=== PATIENT | female | born 1995 | race African-American/Black ===

== ENCOUNTER 2019-01-03 13:11 | Emergency (ER) | payer OTHER ==
[2019-01-03 13:27] VITALS: BP 111/60; PULSE 91; TEMP 99.3; BMI 40.6
--- NOTE | 2019-01-03 14:04 | PDOC ---
History of Present Illness - General Chief Complaint: Pain Stated Complaint: BACK PAIN Time Seen by Provider: 01/03/19 13:52 History Source: Patient Exam Limitations: No Limitations - History of Present Illness Initial Comments: 01/03/19 14:05 8 weeks , and has multiple complaints including severely swollen and painful tonsils with exudate 2 days. States has fevers and chills. And difficulty swallowing. No one at home is sick, has taken no medications or treatments for resolve. Second has severe back pain, states is primarily at waistline and denies any trauma, no recent injury or history of back pain. Denies any vaginal drainage/bleeding or discharge. Denies any problems with bowel or bladder. Has had no care thus far and his first . Back pain also started approximately 2 days ago Occurred: reports: yesterday Severity: reports: moderate, severe Pain Location: reports: back Modifying Factors: improves with: None Loss of Consciousness: no loss of consciousness Associated Symptoms (Fall): headache, muscle spasms, nausea/vomiting Past History - Travel Traveled outside of the country in the last 30 days: No Close contact w/someone who was outside of country & ill: No - Past Medical History Allergies/Adverse Reactions: Allergies Allergy/AdvReac Type Severity Reaction Status Date / Time No Known Allergies Allergy Verified 01/03/19 13:27 Home Medications: Ambulatory Orders Acetaminophen Oral Solution [Tylenol 160mg/5mL Oral Solution -] 650 mg PO Q6H # 200 ml 01/03/19 COPD: No - Suicide/Smoking/Psychosocial Hx Smoking History: Never smoked Review of Systems - Review of Systems Able to Perform ROS?: Yes Is the patient limited Sami proficient: Yes Constitutional: Yes: Symptoms Reported, See HPI, Fever, Malaise HEENTM: Yes: Symptoms Reported, See HPI, Nose Congestion, Throat Pain, Throat Swelling, Difficulty Swallowing Respiratory: Yes: See HPI. No: Symptoms reported, Cough ABD/GI: Yes: See HPI, Nausea, Vomiting. No: Symptoms Reported Musculoskeletal: Yes: Symptoms Reported, See HPI, Back Pain, Muscle Pain Integumentary: No: Symptoms Reported All Other Systems: Reviewed and Negative *Physical Exam - Vital Signs Last Vital Signs Temp Pulse Resp BP Pulse Ox 99.3 F 91 H 18 111/60 99 01/03/19 13:19 01/03/19 13:19 01/03/19 13:19 01/03/19 13:19 01/03/19 13:19 - Physical Exam General Appearance: Yes: Nourished, Appropriately Dressed, Apparent Distress, Moderate Distress HEENT: positive: TMs Normal, Muffled/Hoarse voice (tonsils are grossly enlarged with whitish phillip exudate, airway is patent however tonsils almost kissing), Pharyngeal Erythema, Tonsillar Exudate, Tonsillar Erythema, Nasal Congestion, Rhinorrhea. negative: Pharynx Normal Neck: positive: Supple, Lymphadenopathy (R), Lymphadenopathy (L) Respiratory/Chest: positive: Lungs Clear, Normal Breath Sounds Gastrointestinal/Abdominal: positive: Soft. negative: Tender, Guarding, Rebound Extremity: positive: Normal Inspection, Normal Range of Motion Integumentary: positive: Dry, Warm, Pale Neurologic: positive: grinder II-XII NML intact, Fully Oriented, Alert, Normal Mood/ Affect, Normal Response, Motor Strength 5/5 Progress Note - Progress Note Progress Note: Rapid strep test negative, patient understands if strep other than 80 hemolytic a returns with culture will be called and potential antibiotics will be prescribed. States feels much improved after Tylenol was able to rest. Back is less painful. Given ENCEPHALOGRAPHER Dr. Howell to initiate care, and patient encouraged to follow-up for continued evaluations and forward treatments *DC/Admit/Observation/Transfer Diagnosis at time of Disposition: Pharyngitis Qualifiers: Pharyngitis/tonsillitis etiology: unspecified etiology Qualified Code(s): J02.9 - Acute pharyngitis, unspecified Back pain affecting Qualifiers: Trimester: first trimester Qualified Code(s): O99.89 - Other specified diseases and conditions complicating , childbirth and the puerperium - Discharge Dispostion Disposition: HOME Condition at time of disposition: Stable Decision to Admit order: No - Prescriptions Prescriptions: Acetaminophen Oral Solution [Tylenol 160mg/5mL Oral Solution -] 650 mg PO Q6H # 200 ml - Referrals Referrals: Sarah Howell MD [Staff Physician] - - Patient Instructions Printed Discharge Instructions: DI for Low Back Pain Additional Instructions: Rest, drink lots of fluids: Teas, water, soups, Pedialyte Saltwater gargles Steamy showers/seem to face break up mucus Avoid contact with others until fevers and cough resolved Lots of handwashing and good hygiene Tylenol for fever and pain Followup with private physician in one to 2 days as needed Return to emergency department for worsened symptoms, fevers, dehydration - Post Discharge Activity Forms/Work/School Notes: Back to Work
[2019-01-03] MEDS ORDERED: ACETAMINOPHEN 500 MG TABLET (FP) PO ONE (14:05)
[2019-01-03] MEDS ORDERED: ACETAMINOPHEN 325 MG TABLET (FP) ONE (14:11)
[2019-01-03 14:35] LABS: URINE APPEARANCE CLEAR; URINE BILIRUBIN NEGATIVE (NEGATIVE); URINE COLOR YELLOW; URINE GLUCOSE (UA) NEGATIVE (NEGATIVE); URINE KETONE 3+ (NEGATIVE); URINE LEUK ESTERASE NEGATIVE (NEGATIVE); URINE NITRITE NEGATIVE (NEGATIVE); URINE PROTEIN NEGATIVE (NEGATIVE); URINE UROBILINOGEN 0.2 mg/dL (0.2-1.0)
== END 2019-01-03 14:58 | disposition home or self-care (01) ==
LOC: JERFT 13:11
DX: O99.89 Other specified diseases and conditions complicating pregnancy, childbirth and the puerperium (principal); J02.9 Acute pharyngitis, unspecified; M54.5 Low back pain; Z3A.08 8 weeks gestation of pregnancy
CPT/HCPCS: 81003; 87070; 87077; 87880; 99281-25

== ENCOUNTER 2019-03-04 15:34 | Emergency (ER) | payer OTHER ==
--- NOTE | 2019-03-04 15:53 | PDOC ---
Rapid Medical Evaluation Time Seen by Provider: 03/04/19 15:51 Medical Evaluation: Allergies Allergy/AdvReac Type Severity Reaction Status Date / Time No Known Allergies Allergy Verified 01/03/19 13:27 03/04/19 15:52 I have performed a brief in-person evaluation of this patient. The patient presents with a chief complaint of: urinary, vaginal symptoms, 16 weeks Pertinent physical exam findings:stable and in NAD, non-focal I have ordered the following: ua, stds The patient will proceed to the ED for further evaluation.
[2019-03-04 15:54] VITALS: BP 123/62; PULSE 81; TEMP 98; BMI 41.0
--- NOTE | 2019-03-04 16:50 | PDOC ---
History of Present Illness - General Chief Complaint: Urinary Problem Stated Complaint: 16WKS/ FOUL ODOR Time Seen by Provider: 03/04/19 15:51 - History of Present Illness Initial Comments: 03/04/19 16:43 CHIEF COMPLAINT: vaginal discharge HISTORY OF PRESENT ILLNESS: 23 yo 16 weeks F presents to fast track with vaginal discharge and odor. Patient reports she has had a history of bacterial vaginosis "and they gave me a cream before for it at [facility] but they told me it could come back." Patient reports white discharge and discomfort with urination. Patient also requests STD testing. No recent travel or sick contacts. PAST MEDICAL HISTORY: Denies past medical history FAMILY HISTORY: Denies SOCIAL HISTORY: Denies tobacco, alcohol, illicit drug use. SURGICAL HISTORY: Denies ALLERGIES: No known drug allergies REVIEW OF SYSTEMS General/Constitutional: Denies fever or chills. Denies weakness, weight change. HEENT: Denies change in vision. Denies ear pain or discharge. Denies sore throat. Cardiovascular: Denies chest pain or shortness of breath. Respiratory: Denies cough, wheezing, or hemoptysis. Gastrointestinal: Denies nausea, vomiting, diarrhea or constipation. Denies rectal bleeding. Genitourinary: Dysuria, vaginal odor and white discharge Musculoskeletal: Denies joint or muscle swelling or pain. Denies neck or back pain. Skin and breasts: Denies rash or easy bruising. Neurologic: Denies headache, vertigo, loss of consciousness, or loss of sensation PHYSICAL EXAM General Appearance: Well-appearing, appropriately dressed. No apparent distress , no intoxication. HEENT: EOMI, PERRLA, normal ENT inspection, normal voice, TMs normal, pharynx normal. No conjunctival pallor. No photophobia, scleral icterus. Neck: Supple. Trachea midline. No tenderness, rigidity, carotid bruit, stridor , lymphadenopathy, or thyromegaly. Respiratory/Chest: Lungs CTAB. No shortness of breath, chest tenderness, respiratory distress, accessory muscle use. No crackles, rales, rhonchi, stridor , wheezing, dullness Cardiovascular: RRR. S1, S2. No JVD, murmur, bradycardia, tachycardia. Vascular Pulses: Dorsalis-Pedis (R): 2+, Dorsalis-Pedis (L): 2+ Gastrointestinal/Abdominal: Normal bowel sounds. Abdomen soft, non-distended. No tenderness or rebound tenderness. No organomegaly, pulsatile mass, guarding , hernia, hepatomegaly, splenomegaly. Pelvic exam: Erythema to cervix, white discharge with fishy odor. Lymphatic: No adenopathy, tenderness. Musculoskeletal/Extremities: Normal inspection. FROM of all extremities, normal capillary refill. Pelvis Stable. No CVA tenderness. No tenderness to extremities, pedal edema, swelling, erythema or deformity. Integumentary: Appropriate color, dry, warm. No cyanosis, erythema, jaundice or rash Neurologic: chief load dispatcher II-XII intact. Fully oriented, alert. Appropriate mood/affect. Motor strength 5/5. No appreciable EOM palsy, facial droop or sensory deficit. Past History - Past Medical History Allergies/Adverse Reactions: Allergies Allergy/AdvReac Type Severity Reaction Status Date / Time No Known Allergies Allergy Verified 03/04/19 15:54 Home Medications: Ambulatory Orders Acetaminophen Oral Solution [Tylenol 160mg/5mL Oral Solution -] 650 mg PO Q6H # 200 ml 01/03/19 metroNIDAZOLE [Metronidazole] 500 mg PO BID #14 tablet 03/04/19 COPD: No - Reproductive History Is Patient Now?: Yes Para: 1 - Suicide/Smoking/Psychosocial Hx Smoking History: Never smoked Hx Alcohol Use: No Drug/Substance Use Hx: No *Physical Exam - Vital Signs Last Vital Signs Temp Pulse Resp BP Pulse Ox 98.0 F 81 16 123/62 100 03/04/19 15:51 03/04/19 15:51 03/04/19 15:51 03/04/19 15:51 03/04/19 15:51 Medical Decision Making - Medical Decision Making 03/04/19 16:50 23 yo 16 weeks F presents to fast track with vaginal discharge and odor. -metronidazole rx sent to pharm -will defer treatment for ct/gc pending results given patient is in 2nd trimester of Advised patient to take medication as prescribed and follow up with OB this week. Advised patient of signs and symptoms for return to ED. Patient verbalized understanding and agrees to plan. *DC/Admit/Observation/Transfer Diagnosis at time of Disposition: Bacterial vaginosis in , Yeast infection - Discharge Dispostion Disposition: HOME Condition at time of disposition: Stable Decision to Admit order: No - Prescriptions Prescriptions: metroNIDAZOLE [Metronidazole] 500 mg PO BID #14 tablet - Referrals [facility]errals: [facility] [Outside] - Patient Instructions Printed Discharge Instructions: DI for Bacterial Vaginosis Additional Instructions: Please use medication as prescribed. Please call back in 3-5 days for lab results. If you develop any new or worsening symptoms, please return to the ER. - Post Discharge Activity
[2019-03-04 17:00] LABS: URINE APPEARANCE Error; URINE BILIRUBIN NEGATIVE (NEGATIVE); URINE COLOR YELLOW; URINE GLUCOSE (UA) NEGATIVE (NEGATIVE); URINE KETONE NEGATIVE (NEGATIVE); URINE LEUK ESTERASE NEGATIVE (NEGATIVE); URINE NITRITE NEGATIVE (NEGATIVE); URINE PROTEIN NEGATIVE (NEGATIVE)
== END 2019-03-04 17:13 | disposition home or self-care (01) ==
LOC: JERFT 15:34
DX: O26.892 Other specified pregnancy related conditions, second trimester (principal); O23.592 Infection of other part of genital tract in pregnancy, second trimester; B96.89 Other specified bacterial agents as the cause of diseases classified elsewhere; O98.812 Other maternal infectious and parasitic diseases complicating pregnancy, second trimester; B37.3 Candidiasis of vulva and vagina; Z3A.16 16 weeks gestation of pregnancy
CPT/HCPCS: 36415; 81003; 87086; 87491; 87591; 99282-25

== ENCOUNTER 2019-08-27 15:19 | Inpatient (IN) | payer OTHER ==
[2019-08-27] MEDS ORDERED: AMPICILLIN SODIUM 2 GM VIAL ONE (15:56)
[2019-08-27] MEDS ORDERED: ePHEDrine SULFATE 50 MG/1 ML AMPULE ONE (16:22)
[2019-08-27] MEDS ORDERED: morphine SULFATE/PF 0.5 MG/ML (2cc Syringe - QUVA) ONE (16:22)
--- NOTE | 2019-08-27 16:29 | PN ---
Progress Note (short form) - Note Progress Note: cx 3 cm, 70 vx -3 mi, fhr cat 2, , with decelration with contraction , good BTB variability , advised c/s , need for c/s and risks discussed with patient. product development ,anesthesia has notified previous c/s patient in OR, will do stat c/s as soon as or ready
[2019-08-27 16:30] LABS: BASO % 0.7 % (0-2.0); EOS % 0.9 % (0-4.5); HEMATOCRIT 38.1 % (32.4-45.2); HEMOGLOBIN 12.4 GM/dL (10.7-15.3); LYMPH % 28.3 % (8-40); MCH 27.6 pg (25.7-33.7); MCHC 32.6 g/dl (32.0-36.0); MEAN CELL VOLUME 84.6 fl (80-96); MEAN PLT VOLUME 7.8 fl (7.5-11.1); NEUT % 59.1 % (42.8-82.8); PLATELET COUNT 305 K/MM3 (134-434); WHITE BLOOD COUNT 10.5 K/mm3 (4.0-10.0)
[2019-08-27] MEDS ORDERED: ceFAZolin SODIUM 1 GM VIAL ONE (16:36)
[2019-08-27] MEDS ORDERED: DEXAMETHASONE SOD PHOSPHATE 4 MG/1 ML VIAL ONE (16:36)
[2019-08-27] MEDS ORDERED: KETOROLAC TROMETHAMINE 30 MG/1 ML VIAL ONE (16:36)
[2019-08-27 16:56] LABS: INR 0.93 (0.83-1.09)
[2019-08-27 16:59] LABS: ACTIVATED PTT 27.2 SECONDS (25.2-36.5); BLOOD UREA NITROGEN 8.3 mg/dL (7-18); CALCIUM 8.5 mg/dL (8.5-10.1); CREATININE 0.7 mg/dL (0.55-1.3); POTASSIUM 4.6 mmol/L (3.5-5.1)
[2019-08-27] MEDS ORDERED: CITRIC ACID/SODIUM CITRATE 30 ML UNIT-DOSE CUP PO ONE (17:44)
[2019-08-27] MEDS ORDERED: ELECTROLYTE-148 SOLN 1,000 ML IV SCH (17:45)
[2019-08-27] MEDS ORDERED: diphenhydrAMINE HCL 25 MG CAPSULE (FP) PO PRN (17:46)
[2019-08-27] MEDS ORDERED: SIMETHICONE 80 MG TAB.CHEW (FP) PO PRN (17:46)
[2019-08-27] MEDS ORDERED: WITCH HAZEL 50% (TUCKS) 40 PAD/JAR PAD TP PRN (17:46)
[2019-08-27] MEDS ORDERED: METHYLERGONOVINE MALEATE 0.2 MG/1 ML AMP IM PRN (17:46)
[2019-08-27] MEDS ORDERED: oxyCODONE HCL 5 MG TABLET PO PRN ×2 (17:46)
[2019-08-27] MEDS ORDERED: BENZOCAINE 20% 57 GM BOTTLE TP PRN (17:46)
[2019-08-27] MEDS ORDERED: BENZOCAINE 28 GM HEMORRHOIDAL OINTMENT PR PRN (17:46)
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
[2019-08-27] MEDS ORDERED: CEFAZOLIN 1 GM in DEXTROSE 5%-WATER - 50 ML IVPB SCH (18:00)
[2019-08-27] MEDS ORDERED: OXYTOCIN 20 UNITS in 0.9% NS 20 UNIT/1,000 ML INFUS.BAG IV SCH (18:00)
[2019-08-27] MEDS ORDERED: DEXTROSE 5%-LACTATED RINGERS 1,000 ML IV SCH (18:00)
--- NOTE | 2019-08-27 18:25 | OP ---
Operative Note - Note: Operative Date: 08/27/19 Pre-Operative Diagnosis: 41.5 weeks, labor , non-reassuring FHR Operation: primary LST c/s Findings: live baby girl , ROT, cord around neck once , thick meconium amniotic fluid, Post-Operative Diagnosis: Same as Pre-op Surgeon: Efrem Toledo Escrow Agent: Loy Colbert Anesthesiologist/TROUBLE LOCATOR TEST DESK: Anshul Coelho Anesthesia: Spinal Specimens Removed: placenta Estimated Blood Loss (mls): 500 Drains & Tubes with Location: gomez Drains, Volume Out (mls): 175 Blood Volume Replaced (mls): 0 Fluid Volume Replaced (mls): 1,800 Operative Report Dictated: Yes
[2019-08-27 18:36] VITALS: BMI 42.6
[2019-08-27 20:19] LABS: COCAINE, UR NEGATIVE ng/ml (CUTOFF=300); METHADONE, UR NEGATIVE ng/ml (CUTOFF=300); OPIATES, URI NEGATIVE ng/ml (CUTOFF=300); PHENCYCLIDINE,URINE NEGATIVE ng/ml (CUTOFF=25); URINE AMPHETAMINES NEGATIVE ng/ml (CUTOFF=500); URINE BARBITURATES NEGATIVE ng/ml (CUTOFF=200); URINE BENZODIAZEPINES NEGATIVE ng/ml (CUTOFF=200)
--- NOTE | 2019-08-27 20:57 | OP ---
DATE OF OPERATION: 08/27/2019 PREOPERATIVE DIAGNOSES: , 41-5/7 weeks gestation; labor; non-reassuring heart rate. POSTOPERATIVE DIAGNOSES: , 41-5/7 weeks gestation; labor; non-reassuring heart rate. PROCEDURE: Primary low-segment transverse section. SURGEON: Efrem Toledo MD VETERINARY MEDICINE TEACHER: RADHAMES Collier ANESTHESIA: Spinal. ANESTHESIOLOGIST: Fransisco Coelho MD ESTIMATED BLOOD LOSS: 500 mL. FINDINGS: A live baby girl, ROT position, thick meconium amniotic fluid. OPERATION: Patient was taken to operating room. Adequate spinal anesthesia. Abdomen and perineum was prepped and draped. Pfannenstiel abdominal skin incision was made, abdominal wall was cut layer by layer until peritoneum was exposed and incised. Upon entering abdominal cavity, lower uterine segment was identified and both gutters were packed. Bladder flap was developed with Metzenbaum scissors. Bladder was pushed down and low transverse uterine incision was made with a knife, the incision extended laterally with bandage scissors. Amniotic sac was entered, thick meconium noted. Head delivered. Nasopharynx was suctioned. Cord around the neck x1 was reduced. Anterior and posterior shoulder delivered without any difficulty. Cord clamped and cut, and baby attended by rn wellness in the delivery room. Cord gases were obtained. Cord blood was obtained. Placenta was delivered by expressing the uterus complete. Uterine cavity was cleaned of all remaining tissue. Uterine incision was closed in 2 layers, first layer with 0 Biosyn continuous suture, the second layer with 0 Biosyn imbricating the first layer. Bladder flap was closed using 0 Biosyn continuous suture. Both tubes and ovaries were checked, were normal, no active bleeding was seen. Pelvic cavity several times irrigated. Packing was removed and the peritoneum was closed with 0 Biosyn continuous suture. Muscles were brought together with interrupted suture of 0 Biosyn. Fascia was closed with 0 Biosyn continuous suture, subcutaneous fat with interrupted suture of 0 Biosyn, and the skin was closed with geraldine. Patient tolerated procedure, left the OR in good condition. Lissette [id number]
[2019-08-27] MEDS ORDERED: OXYTOCIN 20 UNITS in 0.9% NS 20 UNIT/1,000 ML INFUS.BAG IV ONE (21:02)
[2019-08-27] MEDS: IBUPROFEN 800 MG/8 ML IJ IVPB PRN (21:58)
[2019-08-28] MEDS ORDERED: CEFAZOLIN 1 GM in DEXTROSE 5%-WATER - 50 ML IVPB SCH (00:01)
[2019-08-28] MEDS: CEFAZOLIN 1 GM/D5W 1 GM/50 ML BAG IVPB SCH ×2 (00:08→09:00)
--- NOTE | 2019-08-28 07:05 | PN ---
Progress Note (short form) - Note Progress Note: pod1 no c/o , CBC, BMP 08/27/19 15:53 08/27/19 15:53 Last Vital Signs Temp Pulse Resp BP Pulse Ox 98.2 F 75 20 119/53 L 100 08/28/19 06:09 08/28/19 06:09 08/28/19 06:09 08/28/19 06:09 08/27/19 18:45 abdomen soft , no distension, no cva incision dry, clean no calf tenderness urine clear , adequate plan ambulate , cbc advance diet pain management DVT prophylaxis Problem List - Problems (1) with 41 completed weeks gestation Code(s): Z3A.41 - 41 WEEKS GESTATION OF (2) Labor established Code(s): [id number] - (3) Non-reassuring electronic monitoring tracing Code(s): O36.8390 - MATERN CARE FOR ABNLT FETL HRT RATE OR RHYM, UNSP TRI, UNSP (4) Obesity affecting in third trimester Code(s): O99.213 - OBESITY COMPLICATING , THIRD TRIMESTER
[2019-08-28 08:12] LABS: BASO % 0.3 % (0-2.0); EOS % 0.5 % (0-4.5); HEMOGLOBIN 11.1 GM/dL (10.7-15.3); LYMPH % 22.6 % (8-40); MCH 27.6 pg (25.7-33.7); MCHC 32.8 g/dl (32.0-36.0); MEAN CELL VOLUME 84.3 fl (80-96); MEAN PLT VOLUME 7.5 fl (7.5-11.1); MONO % 7.9 % (3.8-10.2); NEUT % 68.7 % (42.8-82.8); PLATELET COUNT 268 K/MM3 (134-434); RBC 4.03 M/mm3 (3.60-5.2); RDW 15.4 % (11.6-15.6)
--- NOTE | 2019-08-28 08:51 | PN ---
Progress Note (short form) - Note Progress Note: Post op day#1.S/P C Section under spinal anesthesia with Duramorph uneventful.Patient stable and has little pain for which she is on medication.No any anesthesia related problem.Patient Dc from the anesthesia care.
[2019-08-28] MEDS: IBUPROFEN 800 MG/8 ML IJ IVPB PRN (10:30)
[2019-08-28] MEDS: IBUPROFEN 600 MG TABLET (FP) PO PRN (17:23)
[2019-08-28] MEDS ORDERED: BISACODYL 10 MG SUPP.RECT RC PRN (17:46)
[2019-08-29] MEDS: IBUPROFEN 600 MG TABLET (FP) PO PRN (03:48)
[2019-08-29 09:39] VITALS: BP 137/49; PULSE 97; TEMP 97.6
--- NOTE | 2019-08-29 12:32 | DS ---
Physical Examination Vital Signs: Vital Signs Temperature 97.6 F 08/29/19 09:37 Pulse Rate 97 H 08/29/19 09:37 Respiratory Rate 18 08/29/19 09:37 Blood Pressure 137/49 L 08/29/19 09:37 O2 Sat by Pulse Oximetry (%) 100 08/27/19 18:45 Findings/Remarks: Patient is ambulating, tolerating Po, lochia decreased, voiding, using breast pump, desires to be discharge to be with the . Constitutional: Yes: Well Nourished, No Distress HENT: Yes: Atraumatic Neck: Yes: Supple Cardiovascular: Yes: Regular Rate and Rhythm Respiratory: Yes: Regular Gastrointestinal: Yes: Normal Bowel Sounds ...Rectal Exam: Yes: Deferred Renal/: Yes: Other (mild lochia) Breast(s): Yes: Other (deferred) Musculoskeletal: Yes: WNL Extremities: Yes: WNL Edema: Yes Edema: LLE: Trace, RLE: Trace Integumentary: Yes: WNL Wound/Incision: Yes: Clean/Dry, Well Approximated (s), Bridgette Intact Neurological: Yes: Alert, Oriented ...Motor Strength: WNL Psychiatric: Yes: Alert, Oriented Labs: CBC, BMP 08/28/19 07:00 08/27/19 15:53 Discharge Summary Problems reviewed: Yes Reason For Visit: LABOR ADMISSION Current Active Problems Labor established (Acute) Non-reassuring electronic monitoring tracing (Acute) Obesity (Acute) Obesity affecting in third trimester (Acute) with 41 completed weeks gestation (Acute) Procedures: Principal: Stat CD due to distress Hospital Course: Patient underwent stat C/S due to distress and infant transferred to [facility]. Patient is in stable condition on POD # 2 and desires early discharge to be with the baby. Post-/PP precautions and indications/instructions discussed. Patient was examined and counseled on day of discharge and cleared for it. Health Concerns: and post-op follow up Condition: Stable - Instructions Diet, Activity, Other Instructions: Please return to regular diet as tolerated and avoid strenuous activity and heavy lifting until cleared by MD. Follow up with MD within a week for incision check. Referrals: Efrem Toledo MD [Staff Physician] - Disposition: HOME - Home Medications Comprehensive Discharge Medication List: Ambulatory Orders Pnv No.95/Ferrous Fum/Folic AC [ Formula] 1 each PO DAILY 08/27/19
[2019-08-29] MEDS ORDERED: SENNOSIDES/DOCUSATE COMBO (SENNA PLUS) TABLET (UD) PO PRN (22:00)
--- NOTE | 2019-09-03 16:09 | PATH ---
Surgical Pathology Report Patient Name: OLU MCFARLANE Med. Rec. #: [id number] /Age/Gender: 1995 (Age: 23) / F Account: [id number] Location: [facility] OBS/[employer] DEAN Taken: 08/27/2019 Received: 08/28/2019 Reported: 09/03/2019 Physicians: Efrem Toledo M.D. Specimen(s) Received PLACENTA Clinical History , 41.5 weeks, 03/2012 Final Diagnosis PLACENTA: THIRD TRIMESTER PLACENTA. TRIVASCULAR CORD WITH ACUTE FUNISITIS. MEMBRANES WITH INCREASED PIGMENTED MACROPHAGES, CONSISTENT WITH MECONIUM STAINING. Electronically Signed Karri Zacarias M.D. Gross Description The specimen is received fresh labeled placenta and is a 345 gram, 19.0 x 16.0 x 1.9 cm. placenta with attached membranes and umbilical cord. The attached membranes are lamar green, meconium stained, translucent with focal opacities and insert marginally. The umbilical cord measures 21 cm. in length and averages 1 cm. in diameter. The cord inserts centrally. No true knots or strictures are identified. Cut surface of the umbilical cord reveals 3 vessels. The surface is phillip green with minimal fibrin deposition and appropriate caliber vessels. The maternal surface is red-brown with focal defects. Sectioning reveals red-brown, spongy parenchyma. No lesions are identified. Tie Maker sections are submitted in three cassettes as follows: 1- membrane rolls and umbilical cord; 2-3- full thickness sections of placenta. 09/02/2019 saudi09/02/2019
== END 2019-08-29 17:30 | disposition home or self-care (01) | DRG 540 ==
LOC: JDEL 15:19 → JLDR 15:45 → J3W 21:01
PROVIDERS: ADMIT Obstetrics & Gynecology; ATTEND Obstetrics & Gynecology
PROC: 10D00Z1 Extraction of Products of Conception, Low, Open Approach (ICD-10-PCS; principal; 2019-08-27)
DX: O48.0 Post-term pregnancy (principal); E66.9 Obesity, unspecified; O99.214 Obesity complicating childbirth; O69.81X0 Labor and delivery complicated by cord around neck, without compression, not applicable or unspecified; O76 Abnormality in fetal heart rate and rhythm complicating labor and delivery; Z3A.41 41 weeks gestation of pregnancy; Z37.0 Single live birth
CPT/HCPCS: 36415; 36600; 80048; 80307; 82803; 85025; 85610; 85730; 86593; 86850; 86900; 86901

== ENCOUNTER 2023-12-27 22:27 | Emergency (ER) | payer OTHER ==
[2023-12-27 22:35] VITALS: BP 144/77; PULSE 90; RESP 20; TEMP 98; BMI 40.3
[2023-12-27 23:40] LABS: BASO % 0.9 % (0-2.0); EOS % 0.7 % (0-4.5); HEMOGLOBIN 12.3 GM/dL (10.7-15.3); MCH 27.9 pg (25.7-33.7); MCHC 33.2 g/dl (32.0-36.0); MEAN PLT VOLUME 7.2 fl (7.5-11.1); MONO % 8.1 % (3.8-10.2); NEUT % 49.3 % (42.8-82.8); PLATELET COUNT 338 10^3/uL (134-434); RBC 4.41 M/mm3 (3.60-5.2); RDW 14.6 % (11.6-15.6); WHITE BLOOD COUNT 7.2 K/mm3 (4.0-10.0)
[2023-12-27 23:47] LABS: INR 0.99 (0.83-1.09); PROTHROMBIN TIME (PATIENT) 11.2 SEC (9.7-13.0)
[2023-12-27 23:49] LABS: ACTIVATED PTT 30.5 SECONDS (25.2-36.5)
[2023-12-27 23:56] LABS: EPI CELLS >36 /uL (0-25.1); HYALINE CASTS 2 /uL (0-3.1); PH,URINE 5.5 (5.0-8.0); URINE APPEARANCE CLOUDY; URINE BILIRUBIN NEGATIVE (NEGATIVE); URINE COLOR ORANGE; URINE GLUCOSE (UA) NEGATIVE (NEGATIVE); URINE KETONE NEGATIVE (NEGATIVE); URINE LEUK ESTERASE 1+ (NEGATIVE); URINE NITRITE NEGATIVE (NEGATIVE); URINE PROTEIN TRACE (NEGATIVE); URINE RBC 4794 /uL (0-23.9); URINE UROBILINOGEN 0.2 mg/dL (0.2-1.0); URINE WBC 35 /uL (0-25.8)
[2023-12-28 00:01] LABS: URINE BACTERIA 69.5 /uL (0-1359)
[2023-12-28 00:01] LABS: POTASSIUM 4.3 mmol/L (3.5-5.1)
[2023-12-28 00:03] LABS: BLOOD UREA NITROGEN 6.6 mg/dL (7-18); CALCIUM 8.9 mg/dL (8.5-10.1)
[2023-12-28 00:04] LABS: ALBUMIN 3.6 g/dl (3.4-5.0)
[2023-12-28 00:07] LABS: CREATININE 0.7 mg/dL (0.55-1.3)
[2023-12-28 00:08] LABS: BILIRUBIN,TOTAL 0.2 mg/dL (0.2-1); TOT PROT 7.3 g/dl (6.4-8.2)
[2023-12-28] MEDS ORDERED: ACETAMINOPHEN INJECTION 100 ML IVPB ONE (01:19)
[2023-12-28] MEDS ORDERED: KETOROLAC TROMETHAMINE 15 MG/ML VIAL ONE (01:19)
[2023-12-28] MEDS: KETOROLAC TROMETHAMINE 15 MG/ML VIAL IVPUSH ONE (01:36)
[2023-12-28] MEDS: ACETAMINOPHEN 1000 MG/100 ML BAG IVPB ONE (01:36)
== END 2023-12-28 01:46 | disposition home or self-care (01) ==
LOC: JER 22:27
PROC: 3E033NZ Introduction of Analgesics, Hypnotics, Sedatives into Peripheral Vein, Percutaneous Approach (ICD-10-PCS; principal; 2023-12-28)
PROC: 3E0333Z Introduction of Anti-inflammatory into Peripheral Vein, Percutaneous Approach (ICD-10-PCS; 2023-12-28)
DX: O03.9 Complete or unspecified spontaneous abortion without complication (principal); Z20.822 Contact with and (suspected) exposure to COVID-19
CPT/HCPCS: 0241U-QW; 36415; 76817-TC; 80053; 81003; 84702; 85025; 85610; 85730; 86850; 86900; 86901; 87077; 87086; 87186; 99284-25; J0131